=== PATIENT | male | born 1975 | race Two or more races ===

== ENCOUNTER 2019-10-23 08:44 | Outpatient (CLI) | payer OTHER | END 2019-10-23 09:07 | disposition home or self-care (01) | LOC: NUCLEAR 08:44 | DX: E05.80 Other thyrotoxicosis without thyrotoxic crisis or storm (principal) | CPT/HCPCS: 78012; A9531 ==

== ENCOUNTER 2019-10-24 09:11 | Outpatient (CLI) | payer OTHER | END 2019-10-24 10:23 | disposition home or self-care (01) | LOC: NUCLEAR 09:11 | DX: E05.80 Other thyrotoxicosis without thyrotoxic crisis or storm (principal) | CPT/HCPCS: 78013; A9512 ==

== ENCOUNTER → 2019-10-29 | Outpatient (CLI) | payer OTHER | END | disposition home or self-care (01) | LOC: NUCLEAR 13:10 | PROVIDERS: ATTEND Internal Medicine Sports Medicine | DX: E05.80 Other thyrotoxicosis without thyrotoxic crisis or storm (principal) | CPT/HCPCS: 79005; A9517 ==